=== PATIENT | male | born 1995 | race Caucasian/White ===

== ENCOUNTER 2020-06-14 09:45 | Emergency (ER) | payer OTHER ==
[2020-06-14] MEDS ORDERED: NORMAL SALINE 1000 ML 1,000 ML IV ONE ×2 (10:22→13:08)
--- NOTE | 2020-06-14 10:24 | ER Document Report ---
ED Medical Screen (RME) - General Chief Complaint: Fever Stated Complaint: FEVER Time Seen by Provider: 06/14/20 10:07 Notes: Patient is a 24-year-old male who presents to the emergency department with a chief complaint of fever, body aches, and swollen lymph nodes. Patient's symptoms started 2 days ago. He went to [facility] and was tested for COVID-19, which came back negative. Patient continues to have the same symptoms and he was referred to the emergency department. Patient states that he has had a decreased appetite. Exam: Temperature 99.9. Heart rate 127. I have greeted and performed a rapid initial assessment of this patient. A comprehensive ED assessment and evaluation of the patient, analysis of test results and completion of medical decision making process will be conducted by an additional ED providers. Physical Exam - Vital signs Vitals: Temp Pulse Resp BP Pulse Ox 99.9 F 127 H 20 128/72 H 97 06/14/20 09:52 06/14/20 09:52 06/14/20 09:52 06/14/20 09:52 06/14/20 09:52 Course - Vital Signs Vital signs: Temp Pulse Resp BP Pulse Ox 99.9 F 127 H 20 128/72 H 97 06/14/20 09:52 06/14/20 09:52 06/14/20 09:52 06/14/20 09:52 06/14/20 09:52
[2020-06-14] MEDS ORDERED: ACETAMINOPHEN 325 MG TABLET PO ONE (10:42)
[2020-06-14] MEDS ORDERED: ONDANSETRON HCL INJ/PF 4 MG/2 ML SDV IV ONE (10:44)
--- NOTE | 2020-06-14 10:44 | ER Document Report ---
ED General - General Chief Complaint: Fever Stated Complaint: FEVER Time Seen by Provider: 06/14/20 10:07 Notes: HPI: 24-year-old male with no real past medical history who presents today with the onset around 3 to 4 days ago of some body aches, low-grade fever, vomiting x2, nonbloody diarrhea x3, with some mild epigastric discomfort and some "swollen lymph nodes". He denies any headache, neck stiffness, pain with swallowing, chest pain, calf pain or leg swelling. Patient did go to the [facility] with a negative coronavirus test. ROS: See HPI All other review of systems reviewed and otherwise negative Reviewed vital signs and nursing note as charted by RN. PHYSICAL EXAM: CONSTITUTIONAL: Alert and oriented and responds appropriately to questions. Well-appearing; well-nourished HEAD: Normocephalic; atraumatic EYES: PERRL; Conjunctivae clear, sclerae non-icteric ENT: Normal nose; no rhinorrhea; moist mucous membranes; pharynx with minimal posterior erythema with no swelling, peritonsillar swelling, with a midline nonswollen uvula NECK: Supple without meningismus; non-tender; no appreciable palpable anterior or posterior cervical lymphadenopathy, no masses CARD: Regular rate and rhythm; no murmurs; symmetric distal pulses RESP: Normal chest excursion without splinting or tachypnea; breath sounds clear and equal bilaterally; no wheezes, no rhonchi, no rales ABD/GI: Normal bowel sounds; non-distended; soft, non-tender currently to deep palpation of all 4 quadrants of the abdomen including the epigastric region BACK: The back appears normal and is non-tender to palpation EXT: Normal ROM in all joints; non-tender to palpation; no edema SKIN: No acute lesions noted NEURO: CN 2-12 intact; 5/5 bilateral upper and lower extremity strength with sensation intact to light touch PSYCH: The patient's mood and manner are appropriate. Grooming and personal hygiene are appropriate. - Related Data Allergies/Adverse Reactions: No Known Allergies Allergy (Unverified 06/14/20 10:36) Past Medical History - Social History Smoking Status: Unknown if Ever Smoked Family History: Reviewed & Not Pertinent Physical Exam - Vital signs Vitals: Temp Pulse Resp BP Pulse Ox 99.9 F 127 H 20 128/72 H 97 06/14/20 09:52 06/14/20 09:52 06/14/20 09:52 06/14/20 09:52 06/14/20 09:52 Course - Re-evaluation Re-evalutation: 06/14/20 10:43 Given the above history and physical examination I will order basic labs, sepsis panel, x-ray of the chest, liver panel and lipase, and reassess. I will provide fluids and nausea medications. Patient has no headache or neck stiffness. I do believe acute bacterial meningitis to be unlikely. Patient looks extraordinarily well. I do believe coronavirus is very likely. 06/14/20 12:59 Labs as recorded. Low white blood cell count and platelet count. Hemoglobin as recorded. X-ray as recorded. Heart rate has improved. Patient still denies any chest pain and patient has no repeat abdominal tenderness. I will treat the patient with a course of Levaquin given the possibility of an infiltrate. Patient has no real contraindications to Levaquin. I explained to the patient the importance of follow-up for recheck of his blood cell lines. - Vital Signs Vital signs: Temp Pulse Resp BP Pulse Ox 99.9 F 127 H 20 128/72 H 97 06/14/20 10:00 06/14/20 09:52 06/14/20 09:52 06/14/20 09:52 06/14/20 09:52 - Laboratory Result Diagrams: 06/14/20 11:10 06/14/20 11:10 Laboratory results interpreted by me: 06/14/20 06/14/20 06/14/20 11:10 11:10 11:20 WBC 2.3 L Hgb 13.0 L MCV 79 L Plt Count 103 L Monocytes % (Manual) 16 H Abs Neuts (Manual) 1.5 L Sodium 132.1 L Chloride 97 L Calcium 8.2 L AST 117 H Total Protein 6.2 L Albumin 3.3 L Urine Protein 100 H Discharge - Discharge Clinical Impression: Lung infiltrate, LOW WHITE BLOOD CELL COUNT, Thrombocytopenia Condition: Good Disposition: HOME, SELF-CARE Instructions: COVID-19 Guidance for Persons Under Investigation Additional Instructions: Come back immediately for any worsening cough, shortness of breath, return or worsening of abdominal discomfort, persistent vomiting or diarrhea, or any other acute problems. Please make sure that [place] of your low white blood cell count and low platelets as we have discussed. Prescriptions: Levofloxacin [Levaquin 750 mg Tablet] 750 mg PO DAILY #5 tablet
--- NOTE | 2020-06-14 11:14 | RADIOLOGY REPORT (SQ) ---
EXAM DESCRIPTION: CHEST SINGLE VIEW IMAGES COMPLETED DATE/TIME: 06/14/2020 11:03 am REASON FOR STUDY: fever COMPARISON: None. TECHNIQUE: Single frontal radiographic view of the chest acquired. NUMBER OF VIEWS: One view. LIMITATIONS: None. FINDINGS: LUNGS AND PLEURA: No pneumothorax. Confluent airspace-interstitial opacities in the left lung base. No Pleural effusion. MEDIASTINUM AND HILAR STRUCTURES: No contour abnormalities. HEART AND VASCULAR STRUCTURES: Heart normal size. BONES: No acute findings. HARDWARE: None in the chest. OTHER: No other significant finding. IMPRESSION: Confluent airspace-interstitial opacities in the left lung base. No Pleural effusion. TECHNICAL DOCUMENTATION: JOB ID: [id number] [place]-72 2010 [employer]- All Rights Reserved Reading location - IP/workstation name: [email or web address]
[2020-06-14 11:54] LABS: APPEARANCE,URINE SLIGHTLY-CLOUDY; BILIRUBIN,URINE NEGATIVE (NEGATIVE); COLOR,URINE AMBER; GLUCOSE, URINE NEGATIVE (NEGATIVE); KETONES,URINE NEGATIVE (NEGATIVE); LEUKOCYTE ESTERASE,URINE NEGATIVE (NEGATIVE); NITRITE,URINE NEGATIVE (NEGATIVE); PROTEIN,URINE 100 mg/dL (NEGATIVE); UROBILINOGEN,URINE NEGATIVE mg/dL (<2.0)
[2020-06-14 12:01] LABS: ALBUMIN 3.3 g/dL (3.5-5.0); ALKALINE PHOSPHATASE 121 U/L (38-126); ANION GAP 9 (5-19); ASPARTATE AMINO TRANSFERASE 117 U/L (17-59); BILIRUBIN,TOTAL 0.4 mg/dL (0.2-1.3); BLOOD UREA NITROGEN 13 mg/dL (7-20); CALCIUM 8.2 mg/dL (8.4-10.2); CARBON DIOXIDE 26 mmol/L (22-30); CHLORIDE 97 mmol/L (98-107); GLUCOSE 90 mg/dL (75-110); POTASSIUM 3.9 mmol/L (3.6-5.0); TOTAL PROTEIN 6.2 g/dL (6.3-8.2)
[2020-06-14 12:08] LABS: A TYPE INFLUENZA AG NEGATIVE (NEGATIVE)
[2020-06-14 12:09] LABS: B INFLUENZA AG NEGATIVE (NEGATIVE)
[2020-06-14] MEDS ORDERED: LEVOFLOXACIN 750 MG TABLET PO ONE (12:32)
[2020-06-14 12:48] LABS: MEAN CORPUSCULAR HEMOGLOBIN 27.1 pg (27.0-33.4); MEAN CORPUSCULAR HGB CONC 34.2 g/dL (32.0-36.0); MEAN CORPUSCULAR VOLUME 79 fl (80-97); PLATELET COUNT 103 10^3/uL (150-450); RED BLOOD COUNT 4.79 10^6/uL (4.35-5.55); RED CELL DISTRIBUTION WIDTH 13.9 % (11.5-14.0); WHITE BLOOD COUNT 2.3 10^3/uL (4.0-10.5)
[2020-06-14 12:51] LABS: ABSOLUTE LYMPHOCYTES# (MANUAL) 0.5 10^3/uL (0.5-4.7); ABSOLUTE MONOCYTES # (MANUAL) 0.4 10^3/uL (0.1-1.4); BASOPHILS % (MANUAL) 0 % (0-2); EOSINOPHILS % (MANUAL) 0 % (0-6); LYMPHOCYTES % (MANUAL) 20 % (13-45); MONOCYTES % (MANUAL) 16 % (3-13); SEGMENTED NEUTROPHILS % (MAN) 64 % (42-78); TOTAL CELLS COUNTED 100
[2020-06-14 12:52] LABS: PLATELET COMMENT DECREASED; RBC MORPHOLOGY COMMENT NORMO-CYTIC/CHROMIC
[2020-06-14] MEDS ORDERED: IBUPROFEN 600 MG TABLET PO ONE (13:08)
[2020-06-14 14:30] VITALS: BP 118/74
== END 2020-06-14 14:31 | disposition home or self-care (01) ==
LOC: ER 09:45
DX: D69.6 Thrombocytopenia, unspecified (principal); R91.8 Other nonspecific abnormal finding of lung field; R50.9 Fever, unspecified; M79.10 Myalgia, unspecified site; R11.10 Vomiting, unspecified; R19.7 Diarrhea, unspecified; R10.13 Epigastric pain; Z20.828 Contact with and (suspected) exposure to other viral communicable diseases
CPT/HCPCS: 99284; 96361; 96374; 36415; 87040; 87070; 87880; 83605; 83690; 85025; 87635; 80053; 81001; 87804; 71045; J2405; J7030; C9803